=== PATIENT | female | born 1975 | race Caucasian/White ===

== ENCOUNTER 2021-07-01 08:16 | Inpatient (IN) | payer BC, OTHER ==
[~2021-07-01] VITALS: Ht 160 cm; Wt 62.6 kg
--- NOTE | 2021-07-01 08:30 | NUR ---
To ER bed 10, BIBA RA88 From Home "Syncopal episode, on her 3rd day of heavy menstrual period", patient skin is pale, aaox3, breathing even and non labored, connected to monitor, saline lock established.
--- NOTE | 2021-07-01 08:55 | NUR ---
INTERPERSONAL COMMUNICATIONS PROFESSOR AT BEDSIDE FOR BLOOD DRAW
--- NOTE | 2021-07-01 09:47 | NUR ---
CALLED LAB TO RESIDENTIAL FEE APPRAISER BLOOD SPECIMEN, SPOKE TO YESSENIA
[2021-07-01 10:09] LABS: BASOPHILS # (AUTO) 0.1 K/uL (0.0-0.2); BASOPHILS % (AUTO) 0.4 % (0.0-2.0); EOSINOPHILS % (AUTO) 0.1 % (0.0-6.0); LYMPHOCYTES # (AUTO) 0.6 K/uL (0.8-4.8); LYMPHOCYTES % (AUTO) 3.7 % (20.0-44.0); MEAN CORPUSCULAR HGB CONC 28 g/dl (31.0-36.0); MEAN CORPUSCULAR VOLUME 76 fL (82-100); MONOCYTES # (AUTO) 1.1 K/uL (0.1-1.30); MONOCYTES % (AUTO) 6.6 % (2.0-12.0); NEUTROPHILS # (AUTO) 14.8 K/uL (1.8-8.9); NEUTROPHILS % (AUTO) 89.2 % (43.0-81.0); PLATELET COUNT (AUTO) 208 K/uL (150-450); RED BLOOD CELL COUNT(AUTO) 2.46 MIL/uL (4.0-5.2); WHITE BLOOD COUNT (AUTO) 16.6 K/uL (4.3-11.0)
--- NOTE | 2021-07-01 10:11 | NUR ---
US AT BEDSIDE
[2021-07-01 10:25] LABS: HEMATOCRIT 19 % (33-45); HEMOGLOBIN 5.2 g/dL (11.5-14.8)
--- NOTE | 2021-07-01 10:27 | NUR ---
CALLED [facility]LR[facility] LEFT VM
[2021-07-01 10:39] LABS: BILIRUBIN,DIRECT 0.1 mg/dL (0.0-0.2); BILIRUBIN,TOTAL 0.2 mg/dL (0.2-1.0); CALCIUM, SERUM 8.4 mg/dL (8.5-10.1); CREATININE 0.9 mg/dL (0.6-1.3); POTASSIUM 4.2 mmol/L (3.5-5.1); TOTAL PROTEIN, SERUM 6.7 g/dL (6.4-8.2)
--- NOTE | 2021-07-01 10:52 | NUR ---
CALLED [facility] [phone]
[2021-07-01] MEDS ORDERED: MEGESTROL ACETATE 40 MG TABLET PO SCH (11:30)
--- NOTE | 2021-07-01 11:40 | NUR ---
CHAPERONED DR. FLANNERY FOR FEMALE PELVIC EXAMINATION
--- NOTE | 2021-07-01 12:06 | NUR ---
CALLED [facility] [phone] DR. SWIFT WILL CALL BACK.
--- NOTE | 2021-07-01 12:08 | NUR ---
CALLED LAB TO FOLLOW-UP WITH [facility], PER BLOOD BANK DEPT, TYPE AND SCREEN HEMOLYZED AND BLOOD WILL NEED TO BE DRAWN AGAIN FROM PATIENT. MADE AWARE
--- NOTE | 2021-07-01 12:16 | NUR ---
CUTTING TOOL SHARPENER AT BEDSIDE
[2021-07-01] MEDS ORDERED: MEGESTROL ACETATE 40 MG TABLET ONE (12:42)
--- NOTE | 2021-07-01 12:47 | NUR ---
GOT BED 112-2 AVAILABLE IN 30 MINS.
--- NOTE | 2021-07-01 12:55 | NUR ---
WENDY LANZA CALLED BACK. Dr. Gaming who gave authorization #[id number] INFO GIVEN TO FRONT.
[2021-07-01] MEDS ORDERED: CEFTRIAXONE 1 G in IV D5W 50 ML IV ONE (13:00)
[2021-07-01] MEDS ORDERED: ZOLPIDEM TARTRATE 5 MG TABLET PO PRN (13:30)
[2021-07-01] MEDS: IV NS 0.9% 1,000 ML IV SCH ×2 (13:30→23:54)
[2021-07-01] MEDS ORDERED: ONDANSETRON HCL/PF 4 MG/2 ML VIAL IVP PRN (13:30)
[2021-07-01] MEDS ORDERED: Z GUARD REMEDY 4 OZ OINT TP PRN (13:30)
[2021-07-01] MEDS ORDERED: MAG HYDROX/AL HYDROX/SIMETH 30 ML UDC PO PRN (13:30)
[2021-07-01] MEDS ORDERED: MAGNESIUM HYDROXIDE 30 ML UDC PO PRN (13:30)
--- NOTE | 2021-07-01 13:32 | NUR ---
VERIFIED [facility] WITH CECILE DE LA CRUZ RN
--- NOTE | 2021-07-01 13:48 | NUR ---
REPORT GIVEN TO NANCY ESPINAL FOR DENZEL
--- NOTE | 2021-07-01 13:50 | NUR ---
NO ADVERSE REACTION WITH FIRST 15 MIN OF BLOOD TRANSFUSION. VSS.
--- NOTE | 2021-07-01 14:15 | NUR ---
RN NOTE PATIENT BROUGHT TO UNIT PLACED IN ROOM 1415. RUNNING ONE UNIT OF [facility]. VITAL SIGNS STABLE ON NC 2L. NO CURRENT COMPLAINT OF PAIN,OR SOB.
[2021-07-01 14:16] LABS: BASOPHILS # (AUTO) 0.1 K/uL (0.0-0.2); BASOPHILS % (AUTO) 0.9 % (0.0-2.0); EOSINOPHILS % (AUTO) 0.1 % (0.0-6.0); HEMATOCRIT 22 % (33-45); LYMPHOCYTES # (AUTO) 1.1 K/uL (0.8-4.8); LYMPHOCYTES % (AUTO) 6.4 % (20.0-44.0); MEAN CORPUSCULAR HGB CONC 27 g/dl (31.0-36.0); MEAN CORPUSCULAR VOLUME 78 fL (82-100); MONOCYTES # (AUTO) 1.1 K/uL (0.1-1.30); MONOCYTES % (AUTO) 6.2 % (2.0-12.0); NEUTROPHILS # (AUTO) 14.9 K/uL (1.8-8.9); NEUTROPHILS % (AUTO) 86.4 % (43.0-81.0); PLATELET COUNT (AUTO) 229 K/uL (150-450); RED BLOOD CELL COUNT(AUTO) 2.81 MIL/uL (4.0-5.2); WHITE BLOOD COUNT (AUTO) 17.2 K/uL (4.3-11.0)
[2021-07-01 14:39] LABS: HEMOGLOBIN 5.9 g/dL (11.5-14.8)
--- NOTE | 2021-07-01 14:50 | NUR ---
RN NOTE RECEIVED CRITICAL LAB OF TROPON[facility] 2880.4. PROVIDER NOTIFIED.
--- NOTE | 2021-07-01 15:00 | NUR ---
RN NOTE RECIEVED CRITICAL LAB OF HGB 5.9. PATIENT IS CURRENTLY GETTING A 1 UNIT OF [facility]
[2021-07-01 16:00] VITALS: BP 102/60
[2021-07-01] MEDS: MEGESTROL ACETATE 40 MG TABLET PO SCH (16:48)
[2021-07-01] MEDS: ACETAMINOPHEN 325 MG TABLET PO PRN (17:57)
[2021-07-01 18:16] VITALS: BP 104/56
[2021-07-01 18:30] VITALS: BP 98/66
--- NOTE | 2021-07-01 18:30 | NUR ---
RN NOTE RECEIVED CRITICAL LAB OF [address]71.[address] ROSADO MADE AWARE NO ORDERS REQUESTED.
[2021-07-01 18:45] VITALS: BP 101/67
--- NOTE | 2021-07-01 19:05 | NUR ---
RN closing note Patient is resting comfortably and is in no acute distress. Call light and tray table with personal belonging within reach. Patient was monitored throughout shift and vital remained in patient's baseline. Interventions were completed as needed. All of the patient's need have been met. Assistance was provided as needed. All due medications given per MD ordered. will endorse to passenger interline clerk.
--- NOTE | 2021-07-01 19:30 | NUR ---
RESOURCE PROGRAM TEACHER NOTE RECEIVED PATIENT IN BED, A/OX4. PATIENT GETTING BLOOD TRANSFUSION AT THE MOMENT, RUNNING AT 160 CC/HR ON L. WRIST. NO S/S OF APPARENT DISTRESS ON 6LPM OF O2 VIA NC. DENIES PAIN AT THIS TIME. SAFETY IN PLACE. WILL CONTINUE WITH PATIENT'S PLAN OF CARE.
--- NOTE | 2021-07-01 19:50 | NUR ---
DEVOPS SOLUTIONS ARCHITECT NOTE PATIENT WAS ENDORSED TO ME AMBULATORY. PATIENT WANTING TO GO TO THE RESTROOM. I ASKED PATIENT IF SHE IS STEADY, PER PATIENT SHE IS. I TOLD HER OKAY, I'M GOING TO ASSIST YOU AND ASSESS HOW WELL YOU CAN WALK. WAS AT BEDSIDE WELL AND PER PATIENT HAS BEEN WANTING TO GO TO RESTROOM AND HE COULD HELP. ASSISTED PATIENT IN THE RESTROOM ALONG WITH HER , AND AT FIRST SHE WAS WEAK AND WAS ABLE TO AMBULATE ALL THE WAY TO THE RESTROOM, WHEN SHE REACHED THE RESTROOM PATIENT STARTED HAVING SYNCOPAL EPISODE. PATIENT DID NOT FALL NOR OBTAIN ANY INJURY FOR SHE WAS ACCOMPANIED, WAS THERE TO HOLD PATIENT I GET A CHAIR TO SIT PATIENT DOWN. I RUSHED PATIENT TO BED SIDE AND PUT HER BACK IN OXYGEN. WAITED FOR PATIENT TO STABILIZED AND SHE TRANSFERRED HERSELF BACK IN BED. PER PATIENT "OH THAT'S WHAT IM SCARED OF" "I THOUGHT I COULD DO IT ALREADY" PER "OH I REALLY THOUGHT SHE COULD DO IT ALREADY TOO". PATIENT TEACHING WAS DONE, AND I TOLD PATIENT AND THAT FOR NOW PATIENT SHOULDN'T BE WALKING. BED HERMAN GIVEN. PATIENT UNABLE TO AMBULATE YET PER NURSING ASSESSMENT. BED REST FOR NOW.
--- NOTE | 2021-07-01 20:00 | NUR ---
RELIEF DRILLER NOTE PATIENT CHANGED TO SIMPLE MASK @10 LPM. DESATURATING IN THE 80'S EVEN WITH DEEP BREATHING. STABLE FOR NOW @ 91% 10LPM VIA SIMPLE MASK . WILL CONTINUE TO MONITOR AND WEAN OFF O2 PATIENT'S CONDITION PERMITS.
[2021-07-01 20:25] VITALS: BP 102/64
--- NOTE | 2021-07-01 20:25 | NUR ---
STRAIGHTENING MACHINE FEEDER NOTE BLOOD TRANSFUSION ENDED AT THIS TIME. NO NOTED REACTIONS. V/S FOLLOWS: T-98.9, BP- 102/64, RR-20, 91% ON 10LPM OF O2 VIA SIMPLE MASK. PATIENT TELE MONITOR READING ST 101. WILL CONTINUE TO MONITOR.
[2021-07-01 22:00] VITALS: BP 110/74
[2021-07-02] VITALS (10 sets, daily range): BP systolic 92–123; BP diastolic 60–74
[2021-07-02] MEDS: IV NS 0.9% 1,000 ML IV SCH (06:07)
--- NOTE | 2021-07-02 06:39 | NUR ---
SALES AND MARKETING COORDINATOR CLOSING NOTE PATIENT IN BED. A/OX4. NO S/S OF APPARENT DISTRESS ON SIMPLE MASK 10LPM. DENIES PAIN. REMAINS BEDREST. TELE MONITOR READING SR 98 THIS MORNING. L. WRIST RUNNING NS @100C/HR AT THIS TIME. ALL NEEDS ATTENDED. SAFETY KEPT IN PLACE THE WHOLE SHIFT. WILL ENDORSE TO MORNING SHIFT RN FOR CONTINUITY OF CARE.
[2021-07-02 06:47] LABS: BASOPHILS # (AUTO) 0.1 K/uL (0.0-0.2); BASOPHILS % (AUTO) 0.3 % (0.0-2.0); EOSINOPHILS % (AUTO) 0.1 % (0.0-6.0); HEMATOCRIT 25 % (33-45); HEMOGLOBIN 7.6 g/dL (11.5-14.8); LYMPHOCYTES # (AUTO) 1.1 K/uL (0.8-4.8); LYMPHOCYTES % (AUTO) 7.3 % (20.0-44.0); MEAN CORPUSCULAR HGB CONC 30 g/dl (31.0-36.0); MEAN CORPUSCULAR VOLUME 78 fL (82-100); MONOCYTES # (AUTO) 1.1 K/uL (0.1-1.30); MONOCYTES % (AUTO) 6.8 % (2.0-12.0); NEUTROPHILS # (AUTO) 13.2 K/uL (1.8-8.9); NEUTROPHILS % (AUTO) 85.5 % (43.0-81.0); PLATELET COUNT (AUTO) 197 K/uL (150-450); RED BLOOD CELL COUNT(AUTO) 3.25 MIL/uL (4.0-5.2); WHITE BLOOD COUNT (AUTO) 15.4 K/uL (4.3-11.0)
--- NOTE | 2021-07-02 07:35 | NUR ---
APARTMENT LEASING SPECIALIST OPENING NOTE PATIENT IS IN BED AWAKE. DR. ROSADO SIGNAL TOWER OPERATOR AT BEDSIDE. A/O X 4. NO S/SX OF DISTRESS NOTED. NO SOB. BREATHING IS EVEN AND UNLABORED ON 10L SIMPLE MASK. NO C/O PAIN. WITH EXTERNAL CONSUMER MARKETING ANALYST WITH SR-ST 100. IV ACCESS RWRIST#20 PATENT AND INTACT WITH NS 0.9%RUNNING @100MLS/HR. SAFETY MEASURES IN PLACE WITH BED LOCKED IN LOW POSITION WITH SIDE RAILS UP X 2. CALL LIGHT IS WITHIN REACH. WILL CONTINUE TO MONITOR PATIENT THROUGHOUT SHIFT.
[2021-07-02 07:57] LABS: POTASSIUM 3.7 mmol/L (3.5-5.1)
[2021-07-02] MEDS ORDERED: ATORVASTATIN 10 MG TABLET PO SCH (09:00)
[2021-07-02 09:01] LABS: ALBUMIN 2.8 g/dL (3.4-5.0); BILIRUBIN,TOTAL 0.3 mg/dL (0.2-1.0); CALCIUM, SERUM 7.7 mg/dL (8.5-10.1); CREATININE 0.8 mg/dL (0.6-1.3); MAGNESIUM 2.2 mg/dL (1.8-2.4); TOTAL PROTEIN, SERUM 6.2 g/dL (6.4-8.2)
[2021-07-02] MEDS: MEGESTROL ACETATE 40 MG TABLET PO SCH ×2 (09:27→16:19)
[2021-07-02] MEDS: ACETAMINOPHEN 325 MG TABLET PO PRN ×2 (09:27→16:19)
--- NOTE | 2021-07-02 10:02 | NUR ---
RN NOTE-CRITICAL LAB LAB CALLED TO REPORT CRITICAL LAB VALUE TROPONIN 7942. PT SR 89 ON EXTERNAL ANIMAL SHELTER SUPERVISOR AND NO C/O CHEST PAIN. DR. ROSADO MADE AWARE AND CHARGE NURSE MADE AWARE WITH NO NEW ORDERS
[2021-07-02] MEDS ORDERED: ALEN70TA80 PO (11:00)
--- NOTE | 2021-07-02 12:31 | NUR ---
RN NOTE STARTED [facility] TRANSFUSION AT THIS TIME. VITALS STABLE. WILL CONTINUE TO MONITOR FOR ADVERSE REACTIONS.
--- NOTE | 2021-07-02 12:59 | NUR ---
RN NOTE PT TOLERATING BLOOD TRANSFUSION WELL. NO S/SX OF DISTRESS OR ALLERGIC REACTIONS. VITALS STABLE. WILL MONITOR CLOSELY.
[2021-07-02 13:10] LABS: BASOPHILS % (AUTO) 0.2 % (0.0-2.0); EOSINOPHILS % (AUTO) 0.2 % (0.0-6.0); HEMATOCRIT 25 % (33-45); HEMOGLOBIN 7.5 g/dL (11.5-14.8); LYMPHOCYTES # (AUTO) 1.2 K/uL (0.8-4.8); LYMPHOCYTES % (AUTO) 6.8 % (20.0-44.0); MEAN CORPUSCULAR HGB CONC 30 g/dl (31.0-36.0); MEAN CORPUSCULAR VOLUME 77 fL (82-100); MONOCYTES # (AUTO) 1.2 K/uL (0.1-1.30); MONOCYTES % (AUTO) 6.5 % (2.0-12.0); NEUTROPHILS # (AUTO) 15.6 K/uL (1.8-8.9); NEUTROPHILS % (AUTO) 86.3 % (43.0-81.0); PLATELET COUNT (AUTO) 186 K/uL (150-450); RED BLOOD CELL COUNT(AUTO) 3.26 MIL/uL (4.0-5.2); WHITE BLOOD COUNT (AUTO) 18.1 K/uL (4.3-11.0)
[2021-07-02] MEDS ORDERED: SOD FERRIC GLUC 125 MG in IV NS 0.9% 100 ML IV SCH (14:00)
--- NOTE | 2021-07-02 15:00 | NUR ---
RN NOTE PT NOTED WITH LABORED BREATHING, ON SIMPLE MASK 10L SATURATING AT 85-87%. NOTIFIED CHICKEN TENDER BRY. PT PLACED ON NON-REBREATHER MASK AT 15L. PT O2 SATURATION LEVEL NOW AT 97% NO S/SX OF DISTRESS.
--- NOTE | 2021-07-02 15:45 | NUR ---
RN NOTE BLOOD TRANSFUSION ENDED. NO S/SX OF DISTRESS. NO S/SX OF ALLERGIC REACTION. PT RESTING COMFORTABLY. VITALS STABLE.
--- NOTE | 2021-07-02 19:22 | NUR ---
SUPPORT ARCHITECT CLOSING NOTE PATIENT IS IN BED AWAKE. A/O X 4. NO S/SX OF DISTRESS NOTED. NO SOB. BREATHING IS EVEN AND UNLABORED ON 15L NON-REBREATHER MASK. NO C/O PAIN. WITH EXTERNAL PRICE CHECKER WITH SR-ST 100. IV ACCESS RWRIST#20 PATENT AND INTACT WITH NS 0.9%RUNNING @100MLS/HR. SAFETY MEASURES IN PLACE WITH BED LOCKED IN LOW POSITION WITH SIDE RAILS UP X 2. CALL LIGHT IS WITHIN REACH. WILL ENDORSE CONTINUITY OF CARE TO ONCOMING SHIFT.
--- NOTE | 2021-07-02 19:30 | NUR ---
RN NOTE PT RECEIVED IN BED. PT IS ON 15L OF O2 VIA NRB SHOWING NO S/S OF RESP DISTRESS. BREATHING EVEN AND UNLABORED WITH CURRENT O2 SAT AT 100%. PT IS A/OX4. PT ON MEDICAL EQUIPMENT TECHNICIAN SHOWING ST. ON CARDIAC DIET. IV ACCESS NOTED ON LEFT WRIST #20 LINES FLUSHED, PATENT, AND INTACT WITH NO INFILTRATION. ALL SAFETY MEASURES IMPLEMENTED. HOB ELEVATED. CALL LIGHT WITHIN REACH. BED ALARM ON. BED LOCKED AND IN LOWEST POSITION. SIDE RAILS UP. WILL CONTINUE TO MONITOR AND ASSESS FOR ANY CHANGES DURING SHIFT.
--- NOTE | 2021-07-02 23:54 | NUR ---
RN NOTE PT COMPLAINING OF BACK PAIN. SPOKE WITH DR. ALVAREZ AND ORDERED MORPHINE 2MG Q4H PRN. ORDER NOTED AND CARRIED OUT.
[2021-07-03] VITALS: BP 106/70
[2021-07-03] MEDS ORDERED: MORPHINE SULFATE INJ 2 MG/ML DISP.SYRIN IV PRN
--- NOTE | 2021-07-03 03:40 | NUR ---
RN NOTE PT STARTED SCREAMING FOR HELP "I CAN'T BREATHE, I CAN'T BREATHE, PLEASE HELP ME". MOLD POLISHER YEIMY SPARKS, AND MYSELF WENT IN TO SEE PATIENT INSTANTLY AND PATIENT HR WAS 129 AND OXYGEN SATURATION WAS 100% ON 15L NRB. RAPID RESPONSE ACTIVATED DUE TO PATIENT BECOMING ALTERED AND UNABLE TO COMMUNICATE VERY RAPIDLY. O2 SAT INSTANTLY DROPPED TO 80'S. YEIMY CHECKED BLOOD SUGAR AND IT WAS 187. REPOSITIONED THE PATIENT.
--- NOTE | 2021-07-03 03:42 | NUR ---
RN NOTE NOTED PATIENT ALL OF A SUDDEN TO BE COLLAPSED AND COMPLETELY UNRESPONSIVE. CODE BLUE WAS ACTIVATED AND CPR INITIATED. CODE BLUE TEAM TOOK OVER. SEE DOCUMENTATION IN CODE BLUE SHEET.
--- NOTE | 2021-07-03 03:45 | NUR ---
RT NOTE CALLED TO PT ROOM FOR RAPID RESPONSE. PT FOUND UNRESPONSIVE. ACLS PROTOCOL INITIATED AND PT INTUBATED PER MD. BILATERAL BS AND POSITIVE COLOR CHANGE NOTED. PT .
--- NOTE | 2021-07-03 04:14 | NUR ---
RN NOTE PER ER DR. SALAZAR DENISE, PT AT THIS TIME. CODE BLUE STOPPED.
--- NOTE | 2021-07-03 04:25 | NUR ---
RN NOTE ATTEMPTED TO REACH OF PATIENT, BUT UNABLE TO REACH. WASHTUB WORKER LEFT MESSAGE FOR TO CALL BACK.
[2021-07-03] MEDS ORDERED: SODIUM BICARBONATE SYR 50 MEQ/50 ML DISP.SYRIN IV ONE (04:29)
[2021-07-03] MEDS ORDERED: EPINEPHRINE (1:10,000) SYRINGE 1 MG/10 ML DISP.SYRIN IVP ONE (04:29)
[2021-07-03] MEDS ORDERED: AMIODARONE 150 MG/3 ML VIAL IV ONE (04:29)
--- NOTE | 2021-07-03 04:49 | NUR ---
RN NOTE TAR LEVELERKYLIE SPARKS ATTEMPTED TO CALL 2ND TIME. NO RESPONSE. WILL TRY TO NOTIFY AGAIN.
--- NOTE | 2021-07-03 06:28 | NUR ---
RN NOTE CARD PLAYERKYLIE SPARKS SPOKE WITH PT DARNELL ESTRADA, AND INFORMED HIM THAT PATIENT . PER DARNELL, HE WILL CALL BACK ONCE HE ARRANGES MORTUARY.
--- NOTE | 2021-07-03 07:50 | NUR ---
RN NOTE RECEIVED REPORT FROM NIGHT NURSE. PATIENT PENDING VIDEO SYSTEM REPAIRER.
--- NOTE | 2021-07-03 08:50 | NUR ---
called to outside sales representative department #[phone] stated that this case is not outside sales representative case her name is BYRON Oseguera
== END 2021-07-03 04:30 | DRG 760 ==
LOC: ER 08:20 → TELE1 14:10
PROVIDERS: ADMIT Family Medicine; ATTEND Family Medicine
PROC: 30233N1 Transfusion of Nonautologous Red Blood Cells into Peripheral Vein, Percutaneous Approach (ICD-10-PCS; principal; 2021-07-01)
PROC: 0BH18EZ Insertion of Endotracheal Airway into Trachea, Via Natural or Artificial Opening Endoscopic (ICD-10-PCS; 2021-07-03)
PROC: 5A12012 Performance of Cardiac Output, Single, Manual (ICD-10-PCS; 2021-07-03)
DX: N92.0 Excessive and frequent menstruation with regular cycle (principal); I21.A1 Myocardial infarction type 2; J96.01 Acute respiratory failure with hypoxia; K72.00 Acute and subacute hepatic failure without coma; D62 Acute posthemorrhagic anemia; E44.1 Mild protein-calorie malnutrition; D50.9 Iron deficiency anemia, unspecified; D72.829 Elevated white blood cell count, unspecified; E83.51 Hypocalcemia; R56.9 Unspecified convulsions; R73.9 Hyperglycemia, unspecified; R74.01 Elevation of levels of liver transaminase levels; E88.09 Other disorders of plasma-protein metabolism, not elsewhere classified; Z20.822 Contact with and (suspected) exposure to COVID-19; W19.XXXA Unspecified fall, initial encounter; Y93.9 Activity, unspecified; Y92.009 Unspecified place in unspecified non-institutional (private) residence as the place of occurrence of the external cause; S09.93XA Unspecified injury of face, initial encounter; I27.20 Pulmonary hypertension, unspecified; R55 Syncope and collapse; Z68.24 Body mass index [BMI] 24.0-24.9, adult
CPT/HCPCS: 36415; 70160-TC; 71045-TC; 76856-TC; 80048-TC; 80053-TC; 80061-TC; 80076-TC; 82728-TC; 83540-TC; 83690-TC; 83735-TC; 84100-TC; 84439-TC; 84484-TC; 84702-TC; 85025-TC; 85730-TC; 86850-TC; 87081-TC; 92950-TC; 93307-TC; 93970-TC; C9803; G0378; J0171; J0282; J0696; J2270; J2916; J3490; J7030; J7040; J7050; J7060; P9016